=== PATIENT | female | born 2000 | race Caucasian/White ===

== ENCOUNTER 2023-01-28 20:16 | Emergency (ER) | payer OTHER, SELFPAY ==
--- NOTE | ~2023-01-28 | CT_ITS ---
CT of the Abdomen and Pelvis: Indication: Abdominal pain Technique: 2.5 mm axial scans were obtained through the abdomen and pelvis following intravenous adm inistration of 100 cc of Omnipaque 350. Dose reduction technique was used on this scan by utilizing a utomated exposure control and iterative reconstruction technique. The dose-length product (DLP) was 3 33.57 mGy-cm. Findings: Scans through the lung bases are unremarkable. The liver, spleen, pancreas, gallbladder, adrenals and kidneys are within normal limits. No evidence of aortic aneurysm. No lymphadenopathy. No bowel obstruction or bowel wall thickening. There is no evidence to suggest acute appendicitis. Images through the pelvis were performed. Urinary bladder unremarkable. No adnexal mass seen. No asci patti. Impression: No significant abnormalities seen. Reviewed, dictated and finalized at [facility]. Impression: No significant abnormalities seen.
[2023-01-28 20:17] VITALS: BP 139/92; PULSE 120; RESP 18; TEMP 36.9; O2SAT 98
[2023-01-28 21:26] LABS: Appearance Urine Clear (Clear); Bilirubin Urine Negative (Negative); Blood Urine Negative (Negative); Color Urine Yellow (Yellow); Glucose Urine UA Negative (Negative); Ketones Urine Negative (Negative); Leukocyte Esterase Ur Negative LEU/UL (Negative); Nitrate Urine Negative (Negative); Protein Urine Negative (Negative); Specific Grav Ur 1.002 (1.001-1.035); Urobilinogen Urine 0.2 mg/dL (<2.0)
[2023-01-28 21:31] LABS: Add Urine Microscopic? NO
[2023-01-28 21:34] LABS: Basophils Absolute Auto 0.1 K/mm3 (0.0-0.1); Basophils Percent Auto 0.6 % (0.2-1.2); Eosinophils Percent Auto 0.4 % (0-4.4); Hematocrit 38.3 % (37.0-47.0); Hemoglobin 12.8 g/dL (12.0-15.0); Immature Granulocyte Absolute 0.02 K/mm3 (0.00-0.031); Immature Granulocyte Percent A 0.3 % (0-0.5); Lymphocytes Absolute Auto 2.02 K/mm3 (0.9-3.2); Lymphocytes Percent Auto 26.2 % (18.3-44.2); Mean Corpuscular HGB Conc 33.4 g/dl (32-36); Mean Corpuscular Volume 92.7 fl (80-100); Mean Platelet Volume 9.4 fl (7.4-10.4); Monocytes Absolute Auto 0.6 K/mm3 (0.1-0.6); Monocytes Percent Auto 7.8 % (2.6-8.5); Neutrophils Percent Auto 64.7 % (45.5-73.1); Platelet Count Result 264 k/mm3 (150-375); Red Blood Count 4.13 M/mm3 (4.2-5.4); Red Cell Distribution Width 12.6 % (11.5-14.5); White Blood Count 7.7 K/mm3 (4.5-10.0)
[2023-01-28 21:44] LABS: Alanine Aminotransferase 24 U/L (6-35); Albumin Level 4.6 g/dL (3.5-5.1); Alkaline Phosphatase 55 U/L (38-126); Anion Gap 7 mmol/L (8-16); Aspartate Amino Transferase 32 U/L (14-36); Bilirubin,Total 0.7 mg/dL (0.2-1.3); Blood Urea Nitrogen 12 mg/dL (7-17); Calcium 9.7 mg/dL (8.4-10.2); Carbon Dioxide 28 mmol/L (22-30); Chloride 104 mmol/L (98-107); Estimated CRCL calculation 74 ml/min; Estimated Glomerular Filt Rate > 60; Glucose 95 mg/dL (65-110); Potassium 3.9 mmol/L (3.4-5.0); Sodium 139 mmol/L (137-145)
[2023-01-28] MEDS: ACETAMINOPHEN 500 MG TABLET 1000 MG PO (22:24)
--- NOTE | 2023-01-28 22:40 | ED.FEMALEGU ---
HPI - Female Genitourinary General Chief complaint: Urogenital-Female Stated complaint: abdominal pain-burning with urination Time Seen by Provider: 01/28/23 21:11 Source: patient Mode of arrival: ambulatory Limitations: no limitations History of Present Illness HPI Narrative: Patient is a 22-year-old female who presents to the ED with concern for UTI. Patient reports she felt fine yesterday, but developed lower abdominal/vaginal pain/irritation and dysuria today. She is concerned she may have a UTI. She denies notable urinary frequency/urgency, hematuria, back pain, fevers, nausea, vomiting, abnormal vaginal bleeding or discharge/odor. She has not noticed any genital lesions or lumps. Denies concern for STDs. Related Data Allergies Allergy/AdvReac Type Severity Reaction Status Date / Time No Known Allergies Allergy Unverified 01/28/23 20:16 Review of Systems Review of Systems: CONSTITUTIONAL: Denies fever, chills, or sweats. CARDIOVASCULAR: Denies chest pain. RESPIRATORY: Denies dyspnea. GASTROINTESTINAL: See HPI. GENITOURINARY: See HPI. SKIN: Denies rash or itching. MUSCULOSKELETAL: Denies back pain, joint pain, or myalgia. All systems reviewed & are unremarkable except as noted in HPI and below Exam Narrative: GENERAL: Mildly uncomfortable appearing, well-nourished, non-toxic, in no acute distress. HEAD: Normocephalic, atraumatic. NECK: Supple. No adenopathy, no masses. RESPIRATORY: Airway patent, respirations nonlabored. Clear to auscultation bilaterally, no rales, rhonchi, wheezing. CARDIOVASCULAR: Borderline tachycardic with regular rhythm without murmurs, rubs, or gallops. Radial pulses 2+ and equal bilaterally. ABDOMINAL: Soft, no significant focal tenderness throughout abdomen, nondistended, no hepatosplenomegaly. Normoactive BS. PELVIC: Normal external genitalia, no genital lesions/blisters/ulcers. No evidence of Bartholin's cyst abnormality. No urethral swelling/irritation. Normal physiologic discharge. No bleeding. Normal-appearing cervix. No candidal skin changes. MUSCULOSKELETAL: Moves all extremities. Strength/ROM intact without gross deformities. SKIN: Warm, dry, normal color. No rashes. NEURO: A&O X3. Speech clear. Cranial nerves II-XII grossly intact. Steady gait. No ataxic movements. PSYCHIATRIC: Mildly anxious. Normal interaction. Course Vital Signs Vital signs: Vital Signs Temperature 98.5 F 01/28/23 20:17 Pulse Rate 120 H 01/28/23 20:17 Respiratory Rate 18 01/28/23 20:17 Blood Pressure 139/92 H 01/28/23 20:17 Pulse Oximetry 98 01/28/23 20:17 Oxygen Delivery Room Air 01/28/23 20:17 Temperature 98.5 F 01/28/23 20:17 Pulse Rate 120 H 01/28/23 20:17 Respiratory Rate 18 01/28/23 20:17 Blood Pressure 139/92 H 01/28/23 20:17 Pulse Oximetry 98 01/28/23 20:17 Oxygen Delivery Room Air 01/28/23 20:17 MDM - Female Genitourinary MDM Narrative Medical decision making narrative: Patient presented to ED with vaginal irritation and concern for UTI, dysuria. Patient tachycardic upon arrival, likely in part related to pain and anxiety. Improved by the time of my evaluation. Basic laboratory studies unremarkable. Urinalysis completely negative. No evidence for infection. Pelvic exam performed and unremarkable. No genital lesions, no evidence for HSV, trauma, kamlesh, Bartholin cyst, normal physiologic discharge, no bleeding. Patient denied concern for STDs and did not want to be screened for these. Bedside urine test with faintly positive line. Beta quant obtained and negative. CT abd/pelvis obtained to further evaluate and unremarkable, no abnormalities noted. Normal uterus and bladder. Patient updated on lab and imaging results. She is ready to be discharged at this time. She has follow-up with her OBGYN next week. Will try Pyridium to treat urinary sx's despite negative urinalysis. Discussed good hygiene, importance of close f/u, and stric
[2023-01-28 23:52] LABS: Beta HCG Quantitative < 2.39 mIU/ML
[2023-01-29 03:40] VITALS: BP 128/88; PULSE 98; RESP 15; O2SAT 100
== END 2023-01-29 03:41 | disposition home or self-care (01) ==
PROVIDERS: Emergency Provider Physician Assistant
DX: R30.0 Dysuria (principal); R10.32 Left lower quadrant pain; R10.31 Right lower quadrant pain
CPT/HCPCS: 36415; 74177; 80053; 81003; 84702; 85025; 99284; A9270; Q9967

== ENCOUNTER 2024-05-19 21:27 | Emergency (ER) | payer SELFPAY ==
--- OUTSIDE RECORDS SUMMARY | 2024-05-19 21:30 | XMS_ITS | Clinical Summary ---
Author Organization [facility] Address [address] [place] [address] Care Team Providers Care Diagnostic Cardiac Sonographer Name Role Phone Unavailable Primary Care Provider Unavailabl e Source Comments [facility],non-owned Affiliates and Associated Physician Practices is amultiple site organization consisting of ambulatory clinics and hospital sitesin [place], [place], [place] and [place]. This disclosure is being madepursuant to the Care Everywhere program and may not contain all information available regarding this patient. Last updated 18.[facility] Allergies No known active allergies Medications * Be aware that medications may not be up to date on this document. Alwaysverify current medications with the patient. Medication Sig Dispensed Refills Start Date End Date Status venlafaxine XR 24hr (Effexor XR) 150 MG capsule TAKE 1 CAPSULE BY MOUTH EVERY DAY AT BEDTIME FOR 30 DAYS 05/26/2023 Active traZODone (Desyrel) 50 MG tablet TAKE 1 AND 1/2 TO 2 TABLETS AT BEDTIME FOR SLEEP 05/12/2023 Active rosuvastatin (Crestor) 10 MG tablet Take 1 (one) tablet by mouth once daily 11/25/2022 Active Dulera 200-5 MCG/ACT inhaler INHALE 2 PUFFS INTO THE LUNGS TWICE A DAY FOR 30 DAYS 03/19/2023 Active minocycline (Minocin) 100 MG capsule TAKE 1 CAPSULE BY MOUTH EVERY 12 HOURS AFTER MEALS FOR 30 DAYS 05/15/2023 Active losartan (Cozaar) 50 MG tablet Take 1 (one) tablet by mouth once daily Active lamoTRIgine (LaMICtal) 25 MG tablet TAKE 2 TABLETS BY MOUTH EVERY DAY IN THE MORNING 2022 Active glycopyrrolate (Robinul) 1 MG tablet TAKE 1 TO 2 TABLETS BY MOUTH TWICE A DAY FOR HYPERHIDROSIS 05/12/2023 Active clindamycin 1 % gel APPLY THIN COAT TO AFFECTED AREA TWICE A DAY 05/28/2023 Active Vitamin D3 25 MCG tablet TAKE 1 TABLET BY MOUTH EVERY DAY WITH MEALS 05/03/2023 Active albuterol HFA (Proventil; Ventolin; Proair) 108 (90 Base) MCG/ACT inhaler INHALE 2 PUFFS EVERY 8 HOURS BY INHALATION ROUTE NEEDED FOR 30 DAYS. 04/12/2023 Active tretinoin (Retin-A) 0.05 % creamIndications: Acne vulgaris Pea sized amount to entire face at night.. 30 days supply. 45 g 5 06/09/2023 Active benzoyl peroxide-erythrom ycin (Benzamycin) 5-3 % gelIndications:Ac ne vulgaris Apply to face area daily. 30 days supplied. 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 06/09/2023 Acne 09/07/2014 06/09/2023 Social History Tobacco Use Types Packs/Day Years Used Date Smoking Tobacco: Never Smokeless Tobacco: Never Alcohol Use Standard Drinks/Week Comments No 0 (1 standard drink = 0.6 oz pur e alcohol) Sex and Gender Information Value Date Recorded Sex Assigned at Not on file Gender Identity Not on file Sexual Orientation Not on file Last Filed Vital Signs Vital Sign Reading Time Taken Comments Blood Pressure 120/77 06/14/2018 12:06 AM [employer] Pulse 84 06/14/2018 12:06 AM [employer] Temperature 36.6 ??C (97.9 ??F) 06/13/2018 6:05 PM CS T Respiratory Rate 16 06/14/2018 12:06 AM [employer] Oxygen Saturation 100% 06/14/2018 12:06 AM [employer] Inhaled Oxygen Concentration - - Weight 59 kg (130 lb) 06/13/2018 6:05 PM [employer] Height 162.6 cm (5' 4 ) 06/13/2018 6:05 PM [employer] Body Mass Index 22.31 06/13/2018 6:05 PM [employer] Plan of Treatment Health Maintenance Due Date Last Done Comments PAP SMEAR 1999 HPV VACCINE (1 - 3-dose series) 07/06/2014 CHLAMYDIA/GONORRHEA SCREENING 2015 HEPATITIS C SCREENING 07/02/2017 DTAP/TDAP/TD VACCINES (1 - Tdap) 07/06/2018 HEPATITIS B VACCINE (1 of 3 - 19+ 3-dose series) 07/06/2018 PNEUMOCOCCAL VACCINE (1 of 2 - PCV) 07/06/2018 COVID-19 VACCINE (1 - 2023-2 5 season) 2023 INFLUENZA VACCINE (#1) 2023 01/22/2023 ZOSTER VACCINE (1 of 2) 07/06/2049 HIV SCREENING Completed 06/13/2018 HIB VACCINE Aged Out No longer eligi ble based on patient's age to complete this topic MENINGOCOCCAL (Group B) VACCINE Aged Out No longer eligible based on patient's age to complete this topic MENINGOCOCCAL VACCINE Aged Out No tru zonia eligible based on patient's age to complete this topic Procedures Procedure Name Priority Date/Time Associated Diagnosis Comments HIV-1 HIV-2 ANTIGEN/ANTIBODY STAT 06/13/2018 7:33 PM [employer] from Last 3 Months or Most Recently Relevant to Health Maintenance Results * HIV-1 HIV-2 ANTIGEN/ANTIBODY (06/13/2018 7:33 PM [employer]) HIV Antigen/Antibod y 1 & 2 Non-reacti ve Non-react tree 06/13/2018 8:21 PM [employer] [facility] Comment: Neither HIV-1 p24 Antigen nor HIV-1/HIV-2 Antibodies are detected. ? Blood BLOOD SPECIMEN / Unknown 06/13/2018 7:33 PM [employer] 06/13/2018 7:43 PM [employer] Quentin Butcher MD [facility] [address] [place] [address] from Last 3 Months or Most Recently Relevant to Health Maintenance LAURIE NEWBY EA A Personal/Famil y 2000 [address] [place] [address]
--- OUTSIDE RECORDS SUMMARY | 2024-05-19 21:30 | XMS_ITS | Data Portability ---
Author Organization [facility] [employer], Main Office Address [address] [place] [address] Assessment No assessment recorded. Plan of Treatment Reminders Order Date Submit Date Provider Last Modified By Organization Details Last Modified Time Details Appointments None recorded. Lab test, urine 2023 024 [email or web address], [place], [address], 4 16:33:43 H. pylori, fingerstic k [email or web address], [place], [address], 4 12:54:[address] referral - 20 y/o needs a pap smear . Thank you 2022 023 Lucy Bowen MD, [address], [address], [place], [address], 3 09:43:52 dermatolog ist referral - Please evql and treat for acne 2022 023 [email or web address] [facility], [address] [facility], [place], [address], 4 08:53:[address] referral 2022 023 [email or web address] Lucy Bowen MD, [address], [address], [place], [address], 4 08:53:40 gastroente rologist referral - Please call patient to schedule an appointmen t. Thank you. 2023 024 [email or web address] Ellen Choi MD, [address] [facility], [facility] [address], [place], [address], 4 09:03:24 Procedures None recorded. Surgeries None recorded. Imaging None recorded. Medication Orders losartan 50 mg tablet 2022 023 [facility] [address] [place], [address], 3 15:51:02 glycopyrro late 1 mg tablet 2022 023 [facility], [address] [place], [address], 3 12:03:47 albuterol sulfate HFA 90 mcg/actuat ion aerosol inhaler 2022 023 [facility], [address] [place] [address], [address], 3 12:05:50 Dulera 200 mcg-5 mcg/actuat ion HFA aerosol inhaler 2022 023 [email or web address] 00 [facility] [address] [place] [address], [address], 3 14:01:11 clindamyci n 1 % topical gel 2022 023 [facility], [address] [place], [address], 3 11:52:43 lamotrigin e 100 mg tablet 2022 023 [facility], [address] [place], [address], 3 12:03:47 venlafaxin e ER 150 mg capsule,ex tended release 24 hr 2022 023 [facility], [address] [place], [address], 3 12:04:30 spironolac tone 25 mg tablet 2022 023 [email or web address] [facility] [address] [place], [address], 4 12:12:26 minocyclin e 100 mg capsule 2022 023 [facility] [address] [place], [address], 3 11:44:59 meclizine 12.5 mg tablet 2023 024 [facility] [address] [place], [address], 4 20:17:50 ondansetro n 4 mg disintegra ting tablet 2023 024 [facility] [address] [place], [address], 4 12:41:47 omeprazole 20 mg tablet,del ayed release 2023 024 [facility], [address] [place], [address], 4 12:45:35 Patient TargetsNo targets recorded. 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 Thank you. Referring Physician: Daryl Regalado [facility], Encounter Date: 01/07/2024 Results Created Date Observation Date Name Description Value Unit Range Abnormal Flag Note LastModifiedBy Organization Detail LastModifiedTime 01/07/20 24 01/07/2024 H. husam iwin rstic k H PYLORI negati ve Not Available [address], [place], [address], 01/07/2024 12:43:36 01/07/20 24 01/07/2024 pregn stanislaw test, urine HCG negati ve Not Available [address], [place], [address], 01/07/2024 12:36:55 Result Notes None recorded. Problems Name Problem SNOMED Code Status Onset Date Resolution Date Notes Provider Name and Address Organization Details Recorded Time Essential hypertensi on 95075200 Active 2022 VARUN Castillo [address], [place], [address], [employer] 3 15:50:23 Administra tion of influenza vaccine Active 2022 VARUN Castillo [address], [place], [address], [employer] 3 15:51:48 Bipolar I disorder 921284464 Active 2022 Zenia Wilfredo is psychiatri st VARUN Castillo [address], [place], [address], [facility] 3 15:54:08 Screening for malignant neoplasm of cervix Active 2022 VARUN Castillo [address], [address], [place], [address], [place] [facility] 3 15:59:19 Acne 69123424 Active 2022 VARUN Castillo [address], [address], [place], [address], [facility] 3 11:52:09 Hyperhidro sis 564373602 Active 2022 VARUN Castillo [address], [address], [place], [address], [facility] 3 12:01:56 Asthma 455474910 Active 2022 VARUN Castillo [address], [address], [place], [address], [facility] 3 12:04:53 Vitamin D deficiency 05441018 Active 2023 Maria Isabel Carlton RN null, [place] - [facility] 4 12:08:48 Hyperlipid emia 10640295 Active 2023 Maria Isabel Carlton RN null, [place] [facility] 4 12:09:18 Nausea 778088711 Active 2023 Elke Flynn RN null, [place] [facility] 4 12:37:03 Gastritis 8927896 Active 2023 VARUN Castillo [address], [address], [place], [address], [facility] 4 12:44:40 Vertigo 161454506 Active 2023 VARUN Castillo [address], [address], [place], [address], [facility] 4 13:00:14 Problem Notes None recorded. Procedures Surgical History Date Name Laterality Status Provider Name and Address Organization Details Recorded Time manipulation of displaced nasal septum completed Elke Flynn RN [place] [facility] 01/07/2024 12:13:33 Imaging Results None recorded. Procedure Notes None recorded. Medical Equipment None Reported. Allergies No known drug allergies Medications Name Sig Start Date Stop Date Status Note LastModified by Organization Details LastModified Time losartan 50 mg tablet TAKE 1 TABLET BY MOUTH EVERY DAY IN THE MORNING 2023 active Not Available Not Available Not Avai lable glycopyrrol ate 1 mg tablet TAKE 1 TO 2 TABLETS BY MOUTH TWICE A DAY FOR HYPERHIDR OSIS 2023 active Not Available Not Available Not Avai lable trazodone 50 mg tablet TAKE 1.5 TABLETS EVERY DAY BY ORAL ROUTE AT BEDTIME FOR 90 DAYS. active Not Available Not Available No t Available hydrocodone 5 mg-acetamin ophen 325 mg tablet TAKE 1 TABLET BY MOUTH EVERY 4 HOURS NEEDED FOR PAIN active Not Available Not Available No t Available minocycline 100 mg capsule TAKE 1 CAPSULE BY MOUTH EVERY 12 HOURS AFTER MEALS FOR 30 DAYS 2023 active Not Available Not Available Not Avai lable spironolact one 100 mg tablet TAKE 1 TABLET BY MOUTH EVERY DAY active Not Available Not Available No t Available venlafaxine ER 150 mg capsule,ext ended release 24 hr TAKE 1 CAPSULE EVERY DAY BY ORAL ROUTE AT BEDTIME FOR 90 DAYS, FOR ANXIETY AND DEPRESSIO N. active Not Available Not Available No t Available meclizine 12.5 mg tablet TAKE 1 TABLET BY MOUTH THREE TIMES A DAY NEEDED FOR 30 DAYS active Not Available Not Available No t Available tretinoin 0.05 % topical cream PEA SIZED AMOUNT TO ENTIRE FACE AT NIGHT.. 30 DAYS SUPPLY. active Not Available Not Available No t Available spironolact one 25 mg tablet TAKE 1 TABLET BY MOUTH EVERY DAY IN THE MORNING 01/06 completed Not Available Not Available Not Available clindamycin 1 % topical gel APPLY THIN COAT TO AFFECTED AREA TWICE A DAY active Not Available Not Available No t Available omeprazole 20 mg capsule,del ayed release TAKE 1 TABLET EVERY DAY BY ORAL ROUTE BEFORE MEAL(S) FOR 30 DAYS. active Not Available Not Available No t Available azelastine 137 mcg (0.1 %) nasal spray ADMINISTE R 1 SPRAY INTO EACH NOSTRIL 2 TIMES A DAY DIRECTED 01/06 completed Not Available Not Available Not Available albuterol sulfate HFA 90 mcg/actuati on aerosol inhaler INHALE 2 PUFFS EVERY 8 HOURS BY INHALATIO N ROUTE NEEDED FOR 30 DAYS. active Not Available Not Available No t Available ondansetron 4 mg disintegrat ing tablet PLACE 1 TABLET 3 TIMES A DAY BY TRANSLING UAL ROUTE NEEDED FOR 30 DAYS. active Not Available Not Available No t Available fluticasone propionate 50 mcg/actuati on nasal spray,suspe nsion ADMINISTE R 2 SPRAYS INTO EACH NOSTRIL 2 TIMES A DAY. 01/06 completed Not Available Not Available Not Available lamotrigine 100 mg tablet TAKE 1 TABLET BY MOUTH EVERYDAY AT BEDTIME active Not Available Not Available No t Available erythromyci n-benzoyl peroxide 3 %-5 % topical gel APPLY TO FACE AREA DAILY. 30 DAYS SUPPLIED. active Not Available Not Available No t Available rosuvastati n 10 mg tablet TAKE 1 TABLET BY MOUTH EVERY DAY 2023 active Not Available Not Available Not Avai lable glycopyrrol ate 01/06 completed Not Available Not Available Not Available venlafaxine 01/06 completed Not Available Not Available Not Available cholecalcif elliot (vitamin D3) 25 mcg (1,000 unit) tablet TAKE 1 TABLET EVERY DAY BY ORAL ROUTE WITH MEAL(S) FOR 90 DAYS. 2023 active Not Available Not Available Not Avai lable omeprazole 20 mg tablet,meagan yed release Take 1 tablet every day by oral route before meal(s) for 30 days. 2023 active Not Available Not Available Not Avai lable Dulera 200 mcg-5 mcg/actuati on HFA aerosol inhaler Inhale 2 puffs twice a day by inhalatio n route for 30 days. active Not Available Not Available No t Available Vitals Date Recorded Body height Body mass index (BMI) Body weight Body temperature Heart rate Oxygen saturation Oxygen saturation in Arterial blood by Pulse oximetry Systolic blood pressure Diastolic blood pressure Provider Name and Address Organization Details Last Updated DateTime 3 162.56 cm 24.7 kg/m2 23317.3 g 98.1 [degF] 112 /min 98 % 98 % 132 mm[Hg] 94 mm[Hg] Lucrecia Danielle MA [facility] [employer] [facility] 3 15:17:53 Date Recorded Body height Body mass index (BMI) Body weight Body temperature Oxygen saturation Oxygen saturation in Arterial blood by Pulse oximetry Heart rate Systolic blood pressure Diastolic blood pressure Provider Name and Address Organization Details Last Updated DateTime 3 162.56 cm 24.7 kg/m2 91321.3 g 98.4 [degF] 96 % 96 % 98.2 /min 126 mm[Hg] 72 mm[Hg] Lucrecia Danielle MA [facility] [employer] [facility] 3 11:35:59 Date Recorded Body height Body mass index (BMI) Body weight Body temperature Heart rate Oxygen saturation Oxygen saturation in Arterial blood by Pulse oximetry Systolic blood pressure Diastolic blood pressure Provider Name and Address Organization Details Last Updated DateTime 3 162.56 cm 24.9 kg/m2 24255.8 9 g 98.6 [degF] 97 /min 98 % 98 % 122 mm[Hg] 86 mm[Hg] Lucrecia Danielle MA [facility] [employer] [facility] 3 11:31:05 Date Recorded Body height Body mass index (BMI) Body weight Body temperature Heart rate Oxygen saturation Oxygen saturation in Arterial blood by Pulse oximetry Systolic blood pressure Diastolic blood pressure Provider Name and Address Organization Details Last Updated DateTime 4 162.56 cm 25.2 kg/m2 28955.0 8 g 98.4 [degF] 110 /min 100 % 100 % 110 mm[Hg] 70 mm[Hg] Elke Flynn RN [facility] [employer] [facility] 4 12:13:52 Social History Question Answer Notes LastModified by Organizat ion Details LastModified Time Tobacco Smoking Status Never Smoker VIVIANA Mendoza [facility] [employer] [facility] 01/22/2023 15:33:45 What Is Your Level Of Alcohol Consumption? None [email or web address] Information not available 01/22/2023 What Is Your Level Of Caffeine Consumption? Moderate [email or web address] Information not available 01/22/2023 Do You Use Your Seat Belt Or Car Seat Routinely? Yes [email or web address] Information not available 01/22/2023 Do You Participate In Social Media? No [email or web address] Information not available 01/22/2023 Do You Feel Stressed (tense, Restless, Nervous, Or Anxious, Or Unable To Sleep At Night)? [id number] [email or web address] Information not available 01/22/2023 Do You Use Any Illicit Or Recreational Drugs? No [email or web address] Information not available 01/22/2023 Sex: Unknown Functional Status None recorded. Mental Status None recorded. Family History Nothing Reported. Medical History No medical history recorded. Gynecological HistoryNo gynecological history recorded. Obstetrics History GPAL:G 0 P 0 0 0 0 Immunizations Vaccine Type Date Status Note Provider Nam e and Address Organization Details Recorded Time Influenza, split virus, quadrivalent, PF 01/22/2023 completed VARUN Castillo [address] [place] [address] [place] [address], [place], [address], [facility] [employer] 01/31/2023 09:51:58 Past Encounters Encounter ID Performer Location Encounter Start Date Encounter Closed Date Diagnosis/Indication Diagnosis SNOMED-CT Code Diagnosis ICD10 Code Diagnosis Note [id number] VARUN Castillo [facility] [place] [address] [place] [address] 01/22/2023 15:05:15 01/22/2023 16:10:06 Essential hypertension 18972471 I10 Administra tion of influenza vaccine 53298597 Z23 Bipolar I disorder 90415 6008 F31.9 Screening for malignant neoplasm of cervix 784612231 Z12.4 [id number] VARUN Castillo [facility] [place] [address] [place] [address] 02/20/2023 11:27:47 02/20/2023 12:02:11 Essential hypertension 21735209 I10 Acne 46535802 L70.9 Screening for malignant neoplasm of cervix 281684040 Z12.4 Bipolar I disorder 24488 6008 F31.9 Hyperhidrosis 016252874 R61 Asthma 947761124 J45.90 9 [id number] VAURN Castillo [facility] [place] [address] [place] [address] 03/20/2023 11:22:54 03/20/2023 12:25:45 Acne 15395875 L70.9 Asthma 915297095 J45.90 9 Bipolar I disorder 64447 6008 F31.9 Essential hypertension 28549376 I10 Hyperhidrosis 248938119 R61 [id number] VARUN Castillo [facility] [place] [address] [facility] [place] [address] 01/07/2024 12:07:38 01/07/2024 12:59:32 Nausea 064391945 R11.0 Gastritis 9344987 K29.70 Vertigo 069308668 R42 Asthma 065364711 J45.90 9 Bipolar I disorder 58599 6008 F31.9 Essential hypertension 55286985 I10 Hyperhidrosis 807898331 R61 Hyperlipidemia 11585731 E78.5 Vitamin D deficiency 347 42605 E55.9 Health Concerns Section Related Observation LastModified by Organization Detai ls LastModified Time None Recorded Concern Status LastModified by Organization Details LastModified Time None Recorded Advance Directives Directive None Recorded Payers Encounter Date Sequence Insurance Name Policy Number Policy Jacobs Covered Member ID Jacobs Member ID Guarantor Name 01/22/2023 1 [facility] (MEDICAID HMO) [id number] Alexzandr Shakira [id number] Alexzandrea Minturn 02/20/2023 1 [facility] (MEDICAID HMO) [id number] Alexzandr Shakira [id number] Alexzandrea Minturn 03/20/2023 1 [facility] (MEDICAID HMO) [id number] Alexzandr Minturn [id number] Alexzandrea Minturn 01/07/2024 1 [facility] (MEDICAID HMO) [id number] Alexzandr Shakira [id number] Alexzandrea Minturn Notes Date Note Type Note Provider Name and Address Organization Details Recorded Time 01/22/2023 text/html 22 y/o here to establish care VARUN Castillo [address] [place] [address] [address], [place], [address], [facility] [employer] [facility] 01/31/2023 09:54:16 02/20/2023 text/html facial acne VARUN Castillo [address], [place], [address], [facility] [employer] [facility] 02/25/2023 14:02:23 03/20/2023 text/html 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 VARUN Castillo [address], [place], [address], [facility] [employer] [facility] 01/24/2024 17:18:47 OBGyn Episode No OBEpisode recorded.
--- OUTSIDE RECORDS SUMMARY | 2024-05-19 21:30 | XMS_ITS | Clinical Summary ---
Author Organization [facility] Address [address] [place] [address] Care Team Providers Care Hotel Reservationist Name Role Phone Kyle Kaur MD Primary Care Provider [phone] Aayush Steele MD Unavailable [phone] Allergies No known active allergies Medications omeprazole (PriLOSEC) 20 mg capsule TAKE 1 CAPSULE BY MOUTH TWICE A DAY BEFORE MEALS 3 Active rosuvastatin (CRESTOR) 10 mg tabletIndicatio ns:hyperlipidem ia Take 1 tablet (10 mg total) by mouth auto bumper straightener before breakfast 3 Active traZODone (DESYREL) 50 mg tabletIndicatio ns:insomnia associated with depression Take 1 tablet (50 mg total) by mouth nightly 3 Active venlafaxine XR (EFFEXOR-XR) 150 mg 24 hr capsuleIndicati ons:Anxiety with Depression Take 1 capsule (150 mg total) by mouth nightly 3 Active glycopyrrolate (ROBINUL) 2 mg tabletIndicatio ns:sweating Take 1 tablet (2 mg total) by mouth 2 (two) times a day Active losartan (COZAAR) 50 mg tabletIndicatio ns:hypertension Take 1 tablet (50 mg total) by mouth auto bumper straightener before breakfast Active lamoTRIgine (LaMICtal) 100 mg tabletIndicatio ns:Bipolar Disorder in Remission Take 1 tablet (100 mg total) by mouth auto bumper straightener before breakfast Active mv-mn/iron/foli c acid/herb 190 (VITAMIN D3 COMPLETE ORAL)Indication s:supplement Take 1 tablet by mouth auto bumper straightener before breakfast Active HYDROcodone-sherri taminophen (NORCO) 5-325 mg per tabletIndicatio ns:Pain Take 1 tablet by mouth every 4 (four) hours as needed for pain 15 tablet 4 Active Active Problems Patient Care Coordination No te Formatting of this note migh t be different from the original. Deviated septum Problem Noted Date Diagnosed Date Hypertrophy of nasal turbinates 03/03/2023 Deviated nasal septum 03/03/2023 Abscess of neck 05/11/2015 Acne 09/07/2014 Epidermal nevus 09/07/2014 Hyperhidrosis 09/07/2014 Surgical History Surgery Date Site/Laterality Comments NECK SURGERY 04/20/2015 - 04/19/2016 Skin tags removed anterior neck Medical History Medical History Date Comments Deviated nasal septum Hyperhidrosis Depression Motion sickness Anxiety Bipolar disorder (HCC) Asthma Social History Tobacco Use Types Packs/Day Years Used Date Smoking Tobacco: Never Smokeless Tobacco: Never AUDIT-C Answer Date Recorded Q1: How often do you have a drink containing alcohol? Never 04/23/2023 Q2: How many drinks containi ng alcohol do you have on a typical day when you are drinking? Patient does not drink Q3: How often do you have si x or more drinks on one occasion? Never 04/23/2023 Personal Safety Answer Date Recorded Have you ever been in or are you currently in a harmful physical or emotional relationship or is someone making you feel afraid or unsafe? 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 [employer] Gender Identity Not on file Sexual Orientation Not on file Obstetrics History Last Filed Vital Signs Vital Sign Reading Time Taken Comments Blood Pressure 144/95 04/23/2023 1:55 PM [employer] Pulse 97 04/23/2023 1:55 PM [employer] Temperature 36.4 ??C (97.5 ??F) 04/23/2023 1:27 PM CS T Respiratory Rate 12 04/23/2023 1:55 PM [employer] Oxygen Saturation 96% 04/23/2023 1:55 PM [employer] Inhaled Oxygen Concentration - - Weight 63.5 kg (140 lb) 04/01/2023 1:25 PM [employer] Height 162.6 cm (5' 4 ) 04/01/2023 1:25 PM [employer] Body Mass Index 24.03 04/01/2023 1:25 PM [employer] Plan of Treatment Health Maintenance Due Date Last Done Comments Cervical Cancer Screening 1999 Depression Screening 1999 Hepatitis C Screening 1999 Regular Well Visit/Exam 18-64 07/06/2017 Covid-19 Vaccine (3 - 2023-2 5 season) 2023 10/17/2020, 09/26/2020 Influenza Vaccine (#1) 2023 01/20/2014 DTaP/Tdap/Td Vaccine (8 - Td or Tdap) 02/29/2032 02/28/2022, 02/05/2011, 03/06/2004, Additional history exists Pneumococcal vaccine <65 Completed 03/06/2004 Varicella Vaccines Completed 02/05/2011, 1 , 11/18/2002 HPV Vaccines Completed 01/02/2017, 05/04/2014 Medical Devices Implanted Type Area Sweeper Brush Maker Machine Device Identifier Shelf Expiration Date Model / Serial / Lot Implantech [employer] 3x2in Nonreinforced Permanent Implantable Thk.04in -40 - [id number] Implanted:Qty: 1 on 04/23/2023 by Aayush Steele MD at [facility] Bilateral : Nose Implantech [id number] 07/25/2027-40 / / [id number] Insurance [facility] Care Teams Hotel Reservationist Relationship Specialty Start Date End Date Kyle Kaur MD [address] [facility] [address] [place] [address] PCP - General Internal Medicine 11/20/22 Aayush Steele MD [address] [facility] [address] [place] [address] Referring Physician Otolaryngology 04/23/23
--- OUTSIDE RECORDS SUMMARY | 2024-05-19 21:30 | XMS_ITS | Referral Summary ---
Author Organization [facility] Address [address] [place] [address] Care Team Providers Care Machine Cell Tuber Name Role Phone Kyle Kaur MD Primary Care Provider [phone] Aayush Steele MD Unavailable [phone] Allergies No known active allergies Medications omeprazole (PriLOSEC) 20 mg capsule TAKE 1 CAPSULE BY MOUTH TWICE A DAY BEFORE MEALS 3 Active rosuvastatin (CRESTOR) 10 mg tabletIndicatio ns:hyperlipidem ia Take 1 tablet (10 mg total) by mouth drilling field specialist before breakfast 3 Active traZODone (DESYREL) 50 [...] 1 tablet (50 mg total) by mouth drilling field specialist before breakfast Active lamoTRIgine (LaMICtal) 100 mg tabletIndicatio ns:Bipolar Disorder in Remission Take 1 tablet (100 mg total) by mouth drilling field specialist before breakfast Active mv-mn/iron/foli c acid/herb 190 (VITAMIN D3 COMPLETE ORAL)Indication s:supplement Take 1 tablet by mouth drilling field specialist before breakfast Active HYDROcodone-sherri taminophen (NORCO) 5-325 [...] Acne 09/07/2014 Epidermal nevus 09/07/2014 Hyperhidrosis 09/07/2014 Social History Tobacco Use Types Packs/Day Years [...] on file 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 Gender Identity Not on file Sexual Orientation Not on file Last Filed Vital Signs Vital Sign Reading Time Taken Comments Blood Pressure 144/95 04/23/2023 1:55 PM CLERICAL SPECIALIST Pulse 97 04/23/2023 1:55 PM CLERICAL SPECIALIST Temperature 36.4 ??C (97.5 ??F) 04/23/2023 1:27 PM CS T Respiratory Rate 12 04/23/2023 1:55 PM CLERICAL SPECIALIST Oxygen Saturation 96% 04/23/2023 1:55 PM CLERICAL SPECIALIST Inhaled Oxygen Concentration - - Weight 63.5 kg (140 lb) 04/01/2023 1:25 PM CLERICAL SPECIALIST Height 162.6 cm (5' 4 ) 04/01/2023 1:25 PM CLERICAL SPECIALIST Body Mass Index 24.03 04/01/2023 1:25 PM CLERICAL SPECIALIST Plan of Treatment Not on file Medical Devices Implanted Type Area Case Investigator Device Identifier Shelf Expiration Date Model / Serial / Lot Implantech Alliedsil 3x2in Nonreinforced Permanent Implantable Thk.04in - [id number] Implanted:Qty: 1 on 04/23/2023 by Aayush Steele MD at [facility] Bilateral : Nose Implantech [id number] 07/25/2027 / / [id number] Insurance [facility] [facility] Care Teams Machine Cell Tuber Relationship Specialty Start Date End Date Kyle Kaur MD [address] [facility] [address] [place] [address] PCP - General Internal Medicine 11/20/22 Aayush Steele MD [address] [facility] [address] [place] [address] Referring Physician Otolaryngology 04/23/23
--- OUTSIDE RECORDS SUMMARY | 2024-05-19 21:30 | XMS_ITS | Referral Summary ---
Author Organization [facility] [employer] Address [address] [place] [address] Care Team Providers Care Animal Surgeon Name Role Phone Unavailable Primary Care Provider Unavailabl e Source Comments [facility],non-owned Affiliates and Associated Physician Practices is amultiple site organization consisting of ambulatory clinics and hospital sitesin [place], [place], [place] and [place]. This disclosure is being madepursuant to the Care Everywhere program and may not contain all information available regarding this patient. Last updated 18.[facility] Allergies No known active allergies Medications * [...] Comments Blood Pressure 120/77 06/14/2018 12:06 AM FITTER AND TURNER Pulse 84 06/14/2018 12:06 AM FITTER AND TURNER Temperature 36.6 ??C (97.9 ??F) 06/13/2018 6:05 PM CS T Respiratory Rate 16 06/14/2018 12:06 AM FITTER AND TURNER Oxygen Saturation 100% 06/14/2018 12:06 AM FITTER AND TURNER Inhaled Oxygen Concentration - - Weight 59 kg (130 lb) 06/13/2018 6:05 PM FITTER AND TURNER Height 162.6 cm (5' 4 ) 06/13/2018 6:05 PM FITTER AND TURNER Body Mass Index 22.31 06/13/2018 6:05 PM FITTER AND TURNER Plan of Treatment Not on file Procedures Procedure Name Priority Date/Time Associated Diagnosis Comments HIV-1 HIV-2 ANTIGEN/ANTIBODY STAT 06/13/2018 7:33 PM FITTER AND TURNER from Last 3 Months or Most Recently Relevant to Health Maintenance Results * HIV-1 HIV-2 ANTIGEN/ANTIBODY (06/13/2018 7:33 PM FITTER AND TURNER) HIV Antigen/Antibod y 1 & 2 Non-reacti ve Non-react tree 06/13/2018 8:21 PM FITTER AND TURNER [facility] Comment: Neither HIV-1 p24 Antigen nor HIV-1/HIV-2 Antibodies are detected. ? Blood BLOOD SPECIMEN / Unknown 06/13/2018 7:33 PM FITTER AND TURNER 06/13/2018 7:43 PM FITTER AND TURNER Quentin Butcher MD LAB - HEMATOLOGY O RDERABLES Performing Organization Address City/State/[facility] Co de Phone Number [facility] [address] [phone] from Last 3 Months or Most Recently Relevant to Health Maintenance LAURIE NEWBY EA Personal/Famil y 2000 [address] [place] [address]
--- OUTSIDE RECORDS SUMMARY | 2024-05-19 21:31 | XMS_ITS | Patient Health Summary ---
Author Organization [facility] [employer] Address [address] [place] [address] Care Team Providers Care Manager Analysis Name Role Phone Unavailable Primary Care Provider Unavailabl e Note from [facility],non-owned Affiliates and Associated Physician Practices is amultiple site organization consisting of ambulatory clinics and hospital sitesin [place], [place], [place] and [place]. This disclosure is being madepursuant to the Care Everywhere program and may not contain all informatio navailable regarding this patient. Last updated 18.[facility] Allergies No known active allergies Medications * Be aware that medications may not be up to date on this document. Alwaysverify current medications with the patient. * venlafaxine XR 24hr (Effexor XR) 150 MG capsule(Started 05/26/2023) TAKE 1 CAPSULE BY MOUTH EVERY DAY AT BEDTIME FOR 30 DAYS * traZODone (Desyrel) 50 MG tablet(Started 05/12/2023) TAKE 1 AND 1/2 TO 2 TABLETS AT BEDTIME FOR SLEEP * rosuvastatin (Crestor) 10 MG tablet(Started 11/25/2022) Take 1 (one) tablet by mouth once daily * Dulera 200-5 MCG/ACT inhaler(Started 03/19/2023) INHALE 2 PUFFS INTO THE LUNGS TWICE A DAY FOR 30 DAYS * minocycline (Minocin) 100 MG capsule(Started 05/15/2023) TAKE 1 CAPSULE BY MOUTH EVERY 12 HOURS AFTER MEALS FOR 30 DAYS * losartan (Cozaar) 50 MG tablet Take 1 (one) tablet by mouth once daily * lamoTRIgine (LaMICtal) 25 MG tablet(Started 2022) TAKE 2 TABLETS BY MOUTH EVERY DAY IN THE MORNING * glycopyrrolate (Robinul) 1 MG tablet(Started 05/12/2023) TAKE 1 TO 2 TABLETS BY MOUTH TWICE A DAY FOR HYPERHIDROSIS * clindamycin 1 % gel(Started 05/28/2023) APPLY THIN COAT TO AFFECTED AREA TWICE A DAY * Vitamin D3 25 MCG tablet(Started 05/03/2023) TAKE 1 TABLET BY MOUTH EVERY DAY WITH MEALS * albuterol HFA (Proventil; Ventolin; Proair) 108 (90 Base) MCG/ACT inhaler (Started 04/12/2023) INHALE 2 PUFFS EVERY 8 HOURS BY INHALATION ROUTE NEEDED FOR 30 DAYS. * tretinoin (Retin-A) 0.05 % cream(Started 06/09/2023) Pea sized amount to entire face at night.. 30 days supply. 5 refills by 06/08/2024 * benzoyl peroxide-erythromycin (Benzamycin) 5-3 % gel(Started 06/09/2023) Apply to face area daily. 30 days supplied. 2 refills by 06/08/2024 * minocycline (Minocin) 100 MG capsule(Started 06/09/2023) Take 1 (one) capsule by mouth 2 times daily 2 refills by 06/08/2024 * spironolactone (Aldactone) 100 MG tablet(Started 12/10/2023) TAKE 1 TABLET BY MOUTH EVERY DAY 5 refills by 12/09/2024 Active Problems Problem Noted Date Diagnosed Date Asthma 02/20/2023 06/09/2023 Bipolar I disorder 01/22/2023 06/09/2023 Abscess of neck 05/11/2015 06/09/2023 Epidermal nevus [...] Comments Blood Pressure 120/77 06/14/2018 12:06 AM DOOR PERSON Pulse 84 06/14/2018 12:06 AM DOOR PERSON Temperature 36.6 ??C (97.9 ??F) 06/13/2018 6:05 PM CS T Respiratory Rate 16 06/14/2018 12:06 AM DOOR PERSON Oxygen Saturation 100% 06/14/2018 12:06 AM DOOR PERSON Inhaled Oxygen Concentration - - Weight 59 kg (130 lb) 06/13/2018 6:05 PM DOOR PERSON Height 162.6 cm (5' 4 ) 06/13/2018 6:05 PM DOOR PERSON Body Mass Index 22.31 06/13/2018 6:05 PM DOOR PERSON Procedures * HCG URINE QUALITATIVE(Performed 06/13/2018) * URINE DRUG SCREEN IMMUNOASSAY(Performed 06/13/2018) * EKG 12-LEAD(Performed 06/13/2018) Performed for Suicidal ideation * HCG BETA BLOOD QUANTITATIVE(Performed 06/13/2018) * TSH(Performed 06/13/2018) * ALCOHOL ETHYL BLOOD(Performed 06/13/2018) * COMPREHENSIVE METABOLIC PANEL(Performed 06/13/2018) * CBC W AUTO DIFFERENTIAL(Performed 06/13/2018) * HIV-1 HIV-2 ANTIGEN/ANTIBODY(Performed 06/13/2018) Results * HCG URINE QUALITATIVE (06/13/2018 9:30 PM DOOR PERSON) [facility] Test Urine Negative Negative 06/13/2018 9:40 PM DOOR PERSON [facility] Urine URINE / Unknown Collection / Unknown 06/13/2018 9:30 PM DOOR PERSON 06/13/2018 9:35 PM DOOR PERSON Musa Reeder MD LAB - URINALYSIS ORD ERABLES [address] [phone] * DRUG SCREEN TOX URINE PANEL (06/13/2018 9:30 PM DOOR PERSON) [facility] Amphetamines Screen Urine Negative Negative: < 1000 ng/mL 06/13/2018 9:58 PM DOOR PERSON [facility] Barbiturates Screen Urine Negative Negative: < 200 ng/mL 06/13/2018 9:58 PM DOOR PERSON [facility] Benzodiazepine Screen Urine Negative Negative: < 200 ng/mL 06/13/2018 9:58 PM [facility] Opiates Urine Negative Negative: < 300 ng/mL 06/13/2018 9:58 PM [facility] Cocaine Metabolites Urine Negative Negative: < 300 ng/mL 06/13/2018 9:58 PM [facility] Phencyclidine Screen Urine Negative Negative: < 25 ng/ml 06/13/2018 9:58 PM [facility] Cannabinoids Screen Urine Negative Negative: <50 ng/mL 06/13/2018 9:58 PM [facility] Methadone Screen Urine Negative Negative: < 300 ng/mL 06/13/2018 9:58 PM [facility] Urine URINE / Unknown Collection / Unknown 06/13/2018 9:30 PM [facility] 06/13/2018 9:35 PM [facility] - 06/13/2018 9:58 PM [facility] The Urine Toxicology Screening Panel does not screen for Propoxyphene, Meprobamate, Carisoprodol, Trazodone, laxl-ugj-sfrycgf medications and/or volatiles (Acetone, Isopropanol, Methanol or Ethylene Glycol). Ethanol, Salicylate, Acetaminophen, Tricyclic Antidepressants and several therapeutic drugs may be individually assayed in serum or plasma specimen. Toxicology testing by the [facility] is an aid to medical diagnosis and treatment of patients. No documented chain of custody was maintained. Results are intended to be used for clinical purposes only. ? Musa Reeder MD LAB - URINE CHEMISTR Y ORDERABLES [facility] [address] [phone] * EKG 12-LEAD (06/13/2018 7:46 PM DOOR PERSON) [facility] Ventricular Rate 83 BPM [facility] Atrial Rate 83 BPM [facility] P-R Interval 124 ms [facility] QRS Duration ms 78 ms [facility] Q-T Interval ms 334 ms [facility] QTC Calculation (Bezet) 392 ms [facility] Calculated P [place] 67 degrees SL MUSE Calculated R [place] 68 degrees [facility] Calculated T [place] 29 degrees [facility] Interpretation EKG NORMAL SINUS RHYTHM WITH SINUS ARRHYTHMIA NORMAL ECG NO PREVIOUS ECGS AVAILABLE Confirmed by MANN.DESTINY SALES ([id number]), publication editor Jose Elias House ([id number]) on 07/25/2018 5:06:25 PM [facility] 06/13/2018 7:46 PM DOOR PERSON 07/25/2018 5:06 PM CDT Musa Reeder MD ECG ORDERABLES Performing Organization Address [facility] Co de Phone Number [facility] * HIV-1 HIV-2 ANTIGEN/ANTIBODY (06/13/2018 7:33 PM DOOR PERSON) [facility] HIV Antigen/Antibod y 1 & 2 Non-reacti ve Non-react tree 06/13/2018 8:21 PM DOOR PERSON [facility] Comment: Neither HIV-1 p24 Antigen nor HIV-1/HIV-2 Antibodies are detected. ? Blood BLOOD SPECIMEN / Unknown 06/13/2018 7:33 PM DOOR PERSON 06/13/2018 7:43 PM DOOR PERSON Quentin Butcher MD LAB - HEMATOLOGY O RDERABLES Performing Organization Address City/[facility]/ZIP Co de Phone Number [facility] [address] [place] [address] * CBC W AUTO DIFFERENTIAL (06/13/2018 7:33 PM DOOR PERSON) [facility] WBC 7.1 3.5 - 10.5 10? 3 /uL 06/13/2018 7:46 PM [facility] RBC 4.51 3.90 - 5.00 10? 6 /uL 06/13/2018 7:46 PM [facility] Hemoglobin 14.1 12.0 - 15.5 g/dL 06/13/2018 7:46 PM [facility] Hematocrit 40.9 35.0 - 45.0 % 06/13/2018 7:46 PM [facility] MCV 90.7 81.0 - 97.0 fL 06/13/2018 7:46 PM [facility] MCH 31.3 28.0 - 34.0 pg 06/13/2018 7:46 PM [facility] MCHC 34.5 32.0 - 36.0 g/dL 06/13/2018 7:46 PM [facility] Platelet Count 346 150 - 400 10? 3 /uL 06/13/2018 7:46 PM [facility] RDW-SD 39.5 36.0 - 50.0 fL 06/13/2018 7:46 PM [facility] RDW-CV 11.9 11.2 - 14.8 % 06/13/2018 7:46 PM [facility] MPV 9.7 9.3 - 12.8 fL 06/13/2018 7:46 PM [facility] nRBC Absolute 0.00 0 10? 3 /uL 06/13/2018 7:46 PM [facility] nRBC Auto 0.0 0 /100 WBC 06/13/2018 7:46 PM [facility] Neutrophils % 63.3 35.0 - 70.0 % 06/13/2018 7:46 PM [facility] Lymphocytes % 28.8 19.7 - 55.1 % 06/13/2018 7:46 PM [facility] Monocytes % 7.0 3.0 - 15.0 % 06/13/2018 7:46 PM [facility] Eosinophils % 0.1 0.0 - 6.0 % 06/13/2018 7:46 PM [facility] Basophil % 0.7 0.0 - 1.5 % 06/13/2018 7:46 PM [facility] Neutrophils Absolute 4.5 1.6 - 7.0 10? 3 /uL 06/13/2018 7:46 PM [facility] Lymphocyte Absolute 2.0 0.8 - 2.9 10? 3 /uL 06/13/2018 7:46 PM [facility] Monocytes Absolute 0.49 0.14 - 0.66 10? 3 /uL 06/13/2018 7:46 PM [facility] Eosinophils Absolute 0.01 0.00 - 0.45 10? 3 /uL 06/13/2018 7:46 PM [facility] Basophils Absolute 0.05 0.00 - 0.06 10? 3 /uL 06/13/2018 7:46 PM [facility] Immature Granulocytes % 0.1 0.0 - 1.0 % 06/13/2018 7:46 PM [facility] Blood BLOOD SPECIMEN / Unknown 06/13/2018 7:33 PM DOOR PERSON 06/13/2018 7:43 PM [facility] Musa Reeder MD LAB - HEMATOLOGY ORD ERABLES Performing Organization Address City/State/[facility] Co de Phone Number [address] [phone] * (ABNORMAL) COMPREHENSIVE METABOLIC PANEL (06/13/2018 7:33 PM DOOR PERSON) BUN 21 7 - 26 mg/dL 06/13/2018 8:01 PM [facility] Creatinine 0.9 0.6 - 1.2 mg/dL 06/13/2018 8:01 PM [facility] Sodium 138 136 - 145 mmol/L 06/13/2018 8:01 PM [facility] Potassium 4.3 3.5 - 4.5 mmol/L 06/13/2018 8:01 PM [facility] Chloride 104 98 - 107 mmol/L 06/13/2018 8:01 PM [facility] CO2 22 22 - 29 mmol/L 06/13/2018 8:01 PM [facility] Glucose 85 70 - 115 mg/dL 06/13/2018 8:01 PM [facility] Calcium 10.3(H) 8.4 - 10.2 mg/dL 06/13/2018 8:01 PM [facility] Protein Total 8.5(H) 6.0 - 8.3 g/dL 06/13/2018 8:01 PM [facility] Albumin 4.3 3.4 - 5.0 g/dL 06/13/2018 8:01 PM [facility] Bilirubin Total 0.5 0.2 - 1.2 mg/dL 06/13/2018 8:01 PM [facility] Alkaline Phosphatase 77 40 - 150 Units/L 06/13/2018 8:01 PM [facility] ALT 32 0 - 55 Units/L 06/13/2018 8:01 PM [facility] AST 30 5 - 34 Units/L 06/13/2018 8:01 PM [facility] Anion Gap 16 8 - 18 06/13/2018 8:01 PM [facility] BUN/Creatinine Ratio 23 7 - 23 06/13/2018 8:01 PM [facility] Osmolality Calculated 288 270 - 300 mOsm/kg 06/13/2018 8:01 PM [facility] Albumin/Globulin Ratio 1.0(L) 1.1 - 2.3 06/13/2018 8:01 PM [facility] eGFR >60 >60 mL/min/1.7 3 m2 06/13/2018 8:01 PM [facility] Blood BLOOD SPECIMEN / Unknown 06/13/2018 7:33 PM DOOR PERSON 06/13/2018 7:43 PM [facility] Musa Reeder MD LAB - CHEMISTRY MADELIN MARTINEZ [facility] Organization Address City/State/ZIP Co de Phone Number [address] [phone] * HCG BETA BLOOD QUANTITATIVE (06/13/2018 7:33 PM [facility]) Beta-hCG Total Quantitative <2 <5 mIU/mL 06/13/2018 9:58 PM [facility] Comment: HCG Numeric Result Interpretation: ? Non- Females: ? < 5 mIU/mL ? Post-Menopausal Females: ??< 7 mIU/mL ? Blood BLOOD SPECIMEN / Unknown 06/13/2018 7:33 PM DOOR PERSON 06/13/2018 7:43 PM DOOR PERSON Musa Reeder MD LAB - CHEMISTRY MADELIN MARTINEZ Performing Organization Address City/[facility]/[place] [address], [facility] [phone] * ALCOHOL ETHYL BLOOD (06/13/2018 7:33 PM DOOR PERSON) Interpretation Ethanol None Detected None Detected mg/dL 06/13/2018 8:01 PM DOOR PERSON [facility] Comment: Ethanol levels less than 10 mg/dL are resulted as None detected . Blood BLOOD SPECIMEN / Unknown 06/13/2018 7:33 PM DOOR PERSON 06/13/2018 7:43 PM DOOR PERSON Musa Reeder MD LAB - CHEMISTRY MADELIN MARTINEZ Performing Organization Address [facility] [place] [address], [facility] [phone] * TSH (06/13/2018 7:33 PM DOOR PERSON) TSH 1.307 0.350 - 4.940 uIU/mL 06/13/2018 8:21 PM DOOR PERSON [facility] Blood BLOOD SPECIMEN / Unknown 06/13/2018 7:33 PM DOOR PERSON 06/13/2018 7:43 PM DOOR PERSON Musa Reeder MD LAB - CHEMISTRY MADELIN MARTINEZ Performing Organization Address City/[facility]/[place] [address], [facility] [phone]
--- NOTE | 2024-05-19 22:00 | ECG_ITS ---
Test Date: 2024-05-19 22:02:28 Measurements Intervals D Lo Rate: 97 P: 71 KS: 132 QRS: 68 QRSD: 90 T: 45 QT: 332 QTc: 422 Interpretive Statements SINUS RHYTHM WITH SINUS ARRHYTHMIA POSSIBLE RIGHT VENTRICULAR CONDUCTION DELAY [RSR (QR) IN V1/V2] BASELINE ARTIFACT LIMITS INTERPRETATION No previous ECG available for comparison Electronically Signed On 05-20-2024 14:25:19 INSIDE SALES PERSON by Ebony Calvo M.D.
[2024-05-19 22:03] VITALS: BP 111/65; PULSE 98; RESP 14; TEMP 36.6; O2SAT 100
--- NOTE | 2024-05-19 22:54 | PC.NURSE ---
pt states they feel a lot better and would prefer to leave. educated pt to return with any concerning symptoms and to follow up with PCP. pt ambulates with steady gait and in no resp. didtress.
--- OUTSIDE RECORDS SUMMARY | 2024-05-19 23:01 | XMS_ITS | Referral Summary ---
Author Organization [facility] Address [address] [place] [address] Care Team Providers Care Office Rep Name Role Phone Kyle Kaur MD Primary Care Provider [phone] Aayush Steele MD Unavailable [phone] Allergies No known active allergies Medications omeprazole (PriLOSEC) 20 mg capsule TAKE 1 CAPSULE BY MOUTH TWICE A DAY BEFORE MEALS 3 Active rosuvastatin (CRESTOR) 10 mg tabletIndicatio ns:hyperlipidem ia Take 1 tablet (10 mg total) by mouth helmet hat sweatband puncher before breakfast 3 Active traZODone (DESYREL) 50 [...] 1 tablet (50 mg total) by mouth helmet hat sweatband puncher before breakfast Active lamoTRIgine (LaMICtal) 100 mg tabletIndicatio ns:Bipolar Disorder in Remission Take 1 tablet (100 mg total) by mouth helmet hat sweatband puncher before breakfast Active mv-mn/iron/foli c acid/herb 190 (VITAMIN D3 COMPLETE ORAL)Indication s:supplement Take 1 tablet by mouth helmet hat sweatband puncher before breakfast Active HYDROcodone-sherri taminophen (NORCO) 5-325 [...] on file Legal Sex Female 9:34 PM ART EDUCATION PROFESSOR Gender Identity Not on file Sexual Orientation Not on file Last Filed Vital Signs Vital Sign Reading Time Taken Comments Blood Pressure 144/95 04/23/2023 1:55 PM ART EDUCATION PROFESSOR Pulse 97 04/23/2023 1:55 PM ART EDUCATION PROFESSOR Temperature 36.4 ??C (97.5 ??F) 04/23/2023 1:27 PM CS T Respiratory Rate 12 04/23/2023 1:55 PM ART EDUCATION PROFESSOR Oxygen Saturation 96% 04/23/2023 1:55 PM ART EDUCATION PROFESSOR Inhaled Oxygen Concentration - - Weight 63.5 kg (140 lb) 04/01/2023 1:25 PM ART EDUCATION PROFESSOR Height 162.6 cm (5' 4 ) 04/01/2023 1:25 PM ART EDUCATION PROFESSOR Body Mass Index 24.03 04/01/2023 1:25 PM ART EDUCATION PROFESSOR Plan of Treatment Not on file Medical Devices Implanted Type Area Label Folder Device Identifier Shelf Expiration Date Model / Serial / Lot Implantech Alliedsil 3x2in Nonreinforced Permanent Implantable Thk.04in - [id number] Implanted:Qty: 1 on 04/23/2023 by Aayush Steele MD at [facility] Bilateral : Nose Implantech [id number] 07/25/2027 / / [id number] Insurance [facility] Care Teams Office Rep Relationship Specialty Start Date End Date Kyle Kaur MD [address] [facility] [address] [place] [address] PCP - General Internal Medicine 11/20/22 Aayush Steele MD [address] [facility] [address] [place] [address] Referring Physician Otolaryngology 04/23/23
--- OUTSIDE RECORDS SUMMARY | 2024-05-19 23:01 | XMS_ITS | Clinical Summary ---
Author Organization [facility] Address [address] [place] [address] Care Team Providers Care Supervisor Electron Tube Processing Name Role Phone Kyle Kaur MD Primary Care Provider [phone] Aayush Steele MD Unavailable [phone] Allergies No known active allergies Medications omeprazole (PriLOSEC) 20 mg capsule TAKE 1 CAPSULE BY MOUTH TWICE A DAY BEFORE MEALS 3 Active rosuvastatin (CRESTOR) 10 mg tabletIndicatio ns:hyperlipidem ia Take 1 tablet (10 mg total) by mouth electronic video games servicer before breakfast 3 Active traZODone (DESYREL) 50 [...] 1 tablet (50 mg total) by mouth electronic video games servicer before breakfast Active lamoTRIgine (LaMICtal) 100 mg tabletIndicatio ns:Bipolar Disorder in Remission Take 1 tablet (100 mg total) by mouth electronic video games servicer before breakfast Active mv-mn/iron/foli c acid/herb 190 (VITAMIN D3 COMPLETE ORAL)Indication s:supplement Take 1 tablet by mouth electronic video games servicer before breakfast Active HYDROcodone-sherri taminophen (NORCO) 5-325 [...] on file Legal Sex Female 9:34 PM SENIOR DATABASE PROGRAMMER Gender Identity Not on file Sexual Orientation Not on file Obstetrics History Last Filed Vital Signs Vital Sign Reading Time Taken Comments Blood Pressure 144/95 04/23/2023 1:55 PM SENIOR DATABASE PROGRAMMER Pulse 97 04/23/2023 1:55 PM SENIOR DATABASE PROGRAMMER Temperature 36.4 ??C (97.5 ??F) 04/23/2023 1:27 PM CS T Respiratory Rate 12 04/23/2023 1:55 PM SENIOR DATABASE PROGRAMMER Oxygen Saturation 96% 04/23/2023 1:55 PM SENIOR DATABASE PROGRAMMER Inhaled Oxygen Concentration - - Weight 63.5 kg (140 lb) 04/01/2023 1:25 PM SENIOR DATABASE PROGRAMMER Height 162.6 cm (5' 4 ) 04/01/2023 1:25 PM SENIOR DATABASE PROGRAMMER Body Mass Index 24.03 04/01/2023 1:25 PM SENIOR DATABASE PROGRAMMER Plan of Treatment Health Maintenance Due Date [...] 01/02/2017, 05/04/2014 Medical Devices Implanted Type Area Manager Federal Device Identifier Shelf Expiration Date Model / Serial / Lot Implantech Alliedsil 3x2in Nonreinforced Permanent Implantable Thk.04in -40 - [id number] Implanted:Qty: 1 on 04/23/2023 by Aayush Steele MD at [facility] Bilateral : Nose Implantech [id number] 07/25/2027-40 / / [id number] Insurance [facility] Care Teams Supervisor Electron Tube Processing Relationship Specialty Start Date End Date Kyle Kaur MD [address] [facility] [address] [place] [address] PCP - General Internal Medicine 11/20/22 Aayush Steele MD [address] [facility] [address] [place] [address] Referring Physician Otolaryngology 04/23/23
--- OUTSIDE RECORDS SUMMARY | 2024-05-19 23:01 | XMS_ITS | Patient Health Summary ---
Author Organization [facility] [employer] Address [address] [place] [address] Care Team Providers Care Erp Analyst Name Role Phone Unavailable Primary Care Provider Unavailabl e Note from [facility],non-owned Affiliates and Associated Physician Practices is amultiple site organization consisting of ambulatory clinics and hospital sitesin [place], [place], [place] and [place]. This disclosure is being madepursuant to the Care Everywhere program and may not contain all informatio navailable regarding this patient. Last updated 18.[facility] Allergies No known active allergies Medications * [...] Comments Blood Pressure 120/77 06/14/2018 12:06 AM INSTRUMENTATION AND CONTROL TECHNICIAN Pulse 84 06/14/2018 12:06 AM INSTRUMENTATION AND CONTROL TECHNICIAN Temperature 36.6 ??C (97.9 ??F) 06/13/2018 6:05 PM CS T Respiratory Rate 16 06/14/2018 12:06 AM INSTRUMENTATION AND CONTROL TECHNICIAN Oxygen Saturation 100% 06/14/2018 12:06 AM INSTRUMENTATION AND CONTROL TECHNICIAN Inhaled Oxygen Concentration - - Weight 59 kg (130 lb) 06/13/2018 6:05 PM INSTRUMENTATION AND CONTROL TECHNICIAN Height 162.6 cm (5' 4 ) 06/13/2018 6:05 PM INSTRUMENTATION AND CONTROL TECHNICIAN Body Mass Index 22.31 06/13/2018 6:05 PM INSTRUMENTATION AND CONTROL TECHNICIAN Procedures * HCG URINE QUALITATIVE(Performed 06/13/2018) * URINE DRUG SCREEN IMMUNOASSAY(Performed 06/13/2018) * EKG 12-LEAD(Performed 06/13/2018) Performed for Suicidal ideation * HCG BETA BLOOD QUANTITATIVE(Performed 06/13/2018) * TSH(Performed 06/13/2018) * ALCOHOL ETHYL BLOOD(Performed 06/13/2018) * COMPREHENSIVE METABOLIC PANEL(Performed 06/13/2018) * CBC W AUTO DIFFERENTIAL(Performed 06/13/2018) * HIV-1 HIV-2 ANTIGEN/ANTIBODY(Performed 06/13/2018) Results * HCG URINE QUALITATIVE (06/13/2018 9:30 PM INSTRUMENTATION AND CONTROL TECHNICIAN) [facility] Test Urine Negative Negative 06/13/2018 9:40 PM INSTRUMENTATION AND CONTROL TECHNICIAN [facility] Urine URINE / Unknown Collection / Unknown 06/13/2018 9:30 PM INSTRUMENTATION AND CONTROL TECHNICIAN 06/13/2018 9:35 PM INSTRUMENTATION AND CONTROL TECHNICIAN Musa Reeder MD LAB - URINALYSIS ORD ERABLES [address] [phone] * DRUG SCREEN TOX URINE PANEL (06/13/2018 9:30 PM INSTRUMENTATION AND CONTROL TECHNICIAN) [facility] Amphetamines Screen Urine Negative Negative: < 1000 ng/mL 06/13/2018 9:58 PM INSTRUMENTATION AND CONTROL TECHNICIAN [facility] Barbiturates Screen Urine Negative Negative: < 200 ng/mL 06/13/2018 9:58 PM INSTRUMENTATION AND CONTROL TECHNICIAN [facility] Benzodiazepine Screen Urine Negative Negative: < 200 ng/mL 06/13/2018 9:58 PM [facility] Opiates Urine Negative Negative: < 300 ng/mL 06/13/2018 9:58 PM [facility] Cocaine Metabolites Urine Negative Negative: < 300 ng/mL 06/13/2018 9:58 PM [facility] Phencyclidine Screen Urine Negative Negative: < 25 ng/ml 06/13/2018 9:58 PM [facility] Cannabinoids Screen Urine Negative Negative: <50 ng/mL 06/13/2018 9:58 PM [facility] Methadone Screen Urine Negative Negative: < 300 ng/mL 06/13/2018 9:58 PM [facility] Urine URINE / Unknown Collection / Unknown 06/13/2018 9:30 PM [facility] 06/13/2018 9:35 PM [facility] - 06/13/2018 9:58 PM [facility] The Urine Toxicology Screening Panel does not screen for Propoxyphene, Meprobamate, Carisoprodol, Trazodone, [id number] medications and/or volatiles (Acetone, Isopropanol, Methanol or Ethylene Glycol). Ethanol, Salicylate, Acetaminophen, Tricyclic Antidepressants and several therapeutic drugs may be individually assayed in serum or plasma specimen. Toxicology testing by the [facility] is an aid to medical diagnosis and treatment of patients. No documented chain of custody was maintained. Results are intended to be used for clinical purposes only. ? Musa Reeder MD LAB - URINE CHEMISTR Y ORDERABLES [facility] [address] [phone] * EKG 12-LEAD (06/13/2018 7:46 PM INSTRUMENTATION AND CONTROL TECHNICIAN) [facility] Ventricular Rate 83 BPM [facility] M[facility] Atrial Rate 83 BPM [facility] P-R Interval 124 ms [facility] QRS Duration ms 78 ms [facility] Q-T Interval ms 334 ms [facility] QTC Calculation (Bezet) 392 ms [facility] MUSE Calculated P [place] 67 degrees SL MUSE Calculated R [place] 68 degrees [facility] MUSE Calculated T [place] 29 degrees [facility] MUSE Interpretation EKG NORMAL SINUS RHYTHM WITH SINUS ARRHYTHMIA NORMAL ECG NO PREVIOUS ECGS AVAILABLE Confirmed by [employer] ([id number]), field map editor Jose Elias House ([id number]) on 07/25/2018 5:06:25 PM [facility] MUSE 06/13/2018 7:46 PM INSTRUMENTATION AND CONTROL TECHNICIAN 07/25/2018 5:06 PM CDT Musa Reeder MD ECG ORDERABLES Performing Organization Address [facility] Co de Phone Number [facility] * HIV-1 HIV-2 ANTIGEN/ANTIBODY (06/13/2018 7:33 PM INSTRUMENTATION AND CONTROL TECHNICIAN) [facility] HIV Antigen/Antibod y 1 & 2 Non-reacti ve Non-react tree 06/13/2018 8:21 PM INSTRUMENTATION AND CONTROL TECHNICIAN [facility] Comment: Neither HIV-1 p24 Antigen nor HIV-1/HIV-2 Antibodies are detected. ? Blood BLOOD SPECIMEN / Unknown 06/13/2018 7:33 PM INSTRUMENTATION AND CONTROL TECHNICIAN 06/13/2018 7:43 PM INSTRUMENTATION AND CONTROL TECHNICIAN Quentin Butcher MD LAB - HEMATOLOGY O RDERABLES Performing Organization Address City/[facility] [address]/ZIP Co de Phone Number [facility] [address] [place] [address] * CBC W AUTO DIFFERENTIAL (06/13/2018 7:33 PM INSTRUMENTATION AND CONTROL TECHNICIAN) [facility] WBC 7.1 3.5 - 10.5 10? 3 /uL 06/13/2018 7:46 PM [facility] RBC 4.51 3.90 - 5.00 10? 6 /uL 06/13/2018 7:46 PM [facility] Hemoglobin 14.1 12.0 - 15.5 g/dL 06/13/2018 7:46 PM [facility] Hematocrit 40.9 35.0 - 45.0 % 06/13/2018 7:46 PM [facility] MCV 90.7 81.0 - 97.0 fL 06/13/2018 7:46 PM [facility] MCH 31.3 28.0 - 34.0 pg 06/13/2018 7:46 PM [facility] MCHC 34.5 32.0 - 36.0 g/dL 06/13/2018 7:46 PM [facility] Platelet Count 346 150 - 400 10? 3 /uL 06/13/2018 7:46 PM [facility] RDW-SD 39.5 36.0 - 50.0 fL 06/13/2018 7:46 PM [facility] RDW-CV 11.9 11.2 - 14.8 % 06/13/2018 7:46 PM [facility] MPV 9.7 9.3 - 12.8 fL 06/13/2018 7:46 PM [facility] nRBC Absolute 0.00 0 10? 3 /uL 06/13/2018 7:46 PM [facility] nRBC Auto 0.0 0 /100 WBC 06/13/2018 7:46 PM [facility] Neutrophils % 63.3 35.0 - 70.0 % 06/13/2018 7:46 PM [facility] Lymphocytes % 28.8 19.7 - 55.1 % 06/13/2018 7:46 PM [facility] Monocytes % 7.0 3.0 - 15.0 % 06/13/2018 7:46 PM [facility] Eosinophils % 0.1 0.0 - 6.0 % 06/13/2018 7:46 PM [facility] Basophil % 0.7 0.0 - 1.5 % 06/13/2018 7:46 PM [facility] Neutrophils Absolute 4.5 1.6 - 7.0 10? 3 /uL 06/13/2018 7:46 PM [facility] Lymphocyte Absolute 2.0 0.8 - 2.9 10? 3 /uL 06/13/2018 7:46 PM [facility] Monocytes Absolute 0.49 0.14 - 0.66 10? 3 /uL 06/13/2018 7:46 PM [facility] Eosinophils Absolute 0.01 0.00 - 0.45 10? 3 /uL 06/13/2018 7:46 PM [facility] Basophils Absolute 0.05 0.00 - 0.06 10? 3 /uL 06/13/2018 7:46 PM [facility] Immature Granulocytes % 0.1 0.0 - 1.0 % 06/13/2018 7:46 PM [facility] Blood BLOOD SPECIMEN / Unknown 06/13/2018 7:33 PM INSTRUMENTATION AND CONTROL TECHNICIAN 06/13/2018 7:43 PM [facility] Musa Reeder MD LAB - HEMATOLOGY ORD ERABLES Performing Organization Address City/State/[facility] Co de Phone Number [address] [phone] * (ABNORMAL) COMPREHENSIVE METABOLIC PANEL (06/13/2018 7:33 PM INSTRUMENTATION AND CONTROL TECHNICIAN) BUN 21 7 - 26 mg/dL 06/13/2018 8:01 PM [facility] Creatinine 0.9 0.6 - 1.2 mg/dL 06/13/2018 8:01 PM [facility] Sodium 138 136 - 145 mmol/L 06/13/2018 8:01 PM [facility] Potassium 4.3 3.5 - 4.5 mmol/L 06/13/2018 8:01 PM [facility] Chloride 104 98 - 107 mmol/L 06/13/2018 8:01 PM [facility] CO2 22 22 - 29 mmol/L 06/13/2018 8:01 PM [facility] Glucose 85 70 - 115 mg/dL 06/13/2018 8:01 PM [facility] Calcium 10.3(H) 8.4 - 10.2 mg/dL 06/13/2018 8:01 PM [facility] Protein Total 8.5(H) 6.0 - 8.3 g/dL 06/13/2018 8:01 PM [facility] Albumin 4.3 3.4 - 5.0 g/dL 06/13/2018 8:01 PM [facility] Bilirubin Total 0.5 0.2 - 1.2 mg/dL 06/13/2018 8:01 PM [facility] Alkaline Phosphatase 77 40 - 150 Units/L 06/13/2018 8:01 PM [facility] ALT 32 0 - 55 Units/L 06/13/2018 8:01 PM [facility] AST 30 5 - 34 Units/L 06/13/2018 8:01 PM [facility] Anion Gap 16 8 - 18 06/13/2018 8:01 PM [facility] BUN/Creatinine Ratio 23 7 - 23 06/13/2018 8:01 PM [facility] Osmolality Calculated 288 270 - 300 mOsm/kg 06/13/2018 8:01 PM [facility] Albumin/Globulin Ratio 1.0(L) 1.1 - 2.3 06/13/2018 8:01 PM [facility] eGFR >60 >60 mL/min/1.7 3 m2 06/13/2018 8:01 PM [facility] Blood BLOOD SPECIMEN / Unknown 06/13/2018 7:33 PM INSTRUMENTATION AND CONTROL TECHNICIAN 06/13/2018 7:43 PM [facility] Musa Reeder MD LAB - CHEMISTRY MADELIN MARTINEZ [facility] Organization Address City/State/ZIP Co de Phone Number [address] [phone] * HCG BETA BLOOD QUANTITATIVE (06/13/2018 7:33 PM [facility]) Beta-hCG Total Quantitative <2 <5 mIU/mL 06/13/2018 9:58 PM [facility] Comment: HCG Numeric Result Interpretation: ? Non- Females: ? < 5 mIU/mL ? Post-Menopausal Females: ??< 7 mIU/mL ? Blood BLOOD SPECIMEN / Unknown 06/13/2018 7:33 PM INSTRUMENTATION AND CONTROL TECHNICIAN 06/13/2018 7:43 PM INSTRUMENTATION AND CONTROL TECHNICIAN Musa Reeder MD LAB - CHEMISTRY MADELIN MARTINEZ Performing Organization Address City/[facility] [address] [facility]/[place] [address], [facility] [phone] * ALCOHOL ETHYL BLOOD (06/13/2018 7:33 PM INSTRUMENTATION AND CONTROL TECHNICIAN) Interpretation Ethanol None Detected None Detected mg/dL 06/13/2018 8:01 PM INSTRUMENTATION AND CONTROL TECHNICIAN [facility] Comment: Ethanol levels less than 10 mg/dL are resulted as None detected . Blood BLOOD SPECIMEN / Unknown 06/13/2018 7:33 PM INSTRUMENTATION AND CONTROL TECHNICIAN 06/13/2018 7:43 PM INSTRUMENTATION AND CONTROL TECHNICIAN Musa Reeder MD LAB - CHEMISTRY MADELIN MARTINEZ Performing Organization Address [facility] [address] [facility] [place] [address], [facility] [phone] * TSH (06/13/2018 7:33 PM INSTRUMENTATION AND CONTROL TECHNICIAN) TSH 1.307 0.350 - 4.940 uIU/mL 06/13/2018 8:21 PM INSTRUMENTATION AND CONTROL TECHNICIAN [facility] Blood BLOOD SPECIMEN / Unknown 06/13/2018 7:33 PM INSTRUMENTATION AND CONTROL TECHNICIAN 06/13/2018 7:43 PM INSTRUMENTATION AND CONTROL TECHNICIAN Musa Reeder MD LAB - CHEMISTRY MADELIN MARTINEZ Performing Organization Address City/[facility] [address]/[place] [address], [facility] [phone]
--- OUTSIDE RECORDS SUMMARY | 2024-05-19 23:01 | XMS_ITS | Referral Summary ---
Author Organization [facility] [employer] Address [address] [place] [address] Care Team Providers Care Joint Cutter Machine Name Role Phone Unavailable Primary Care Provider Unavailabl e Source Comments [facility],non-owned Affiliates and Associated Physician Practices is amultiple site organization consisting of ambulatory clinics and hospital sitesin [place], [place], [place] and [place]. This disclosure is being madepursuant to the Care Everywhere program and may not contain all information available regarding this patient. Last updated 18.[facility] [employer] Allergies No known active allergies Medications * [...] Comments Blood Pressure 120/77 06/14/2018 12:06 AM TANK TRUCK ENGINE MECHANIC Pulse 84 06/14/2018 12:06 AM TANK TRUCK ENGINE MECHANIC Temperature 36.6 ??C (97.9 ??F) 06/13/2018 6:05 PM CS T Respiratory Rate 16 06/14/2018 12:06 AM TANK TRUCK ENGINE MECHANIC Oxygen Saturation 100% 06/14/2018 12:06 AM TANK TRUCK ENGINE MECHANIC Inhaled Oxygen Concentration - - Weight 59 kg (130 lb) 06/13/2018 6:05 PM TANK TRUCK ENGINE MECHANIC Height 162.6 cm (5' 4 ) 06/13/2018 6:05 PM TANK TRUCK ENGINE MECHANIC Body Mass Index 22.31 06/13/2018 6:05 PM TANK TRUCK ENGINE MECHANIC Plan of Treatment Not on file Procedures Procedure Name Priority Date/Time Associated Diagnosis Comments HIV-1 HIV-2 ANTIGEN/ANTIBODY STAT 06/13/2018 7:33 PM TANK TRUCK ENGINE MECHANIC from Last 3 Months or Most Recently Relevant to Health Maintenance Results * HIV-1 HIV-2 ANTIGEN/ANTIBODY (06/13/2018 7:33 PM TANK TRUCK ENGINE MECHANIC) HIV Antigen/Antibod y 1 & 2 Non-reacti ve Non-react tree 06/13/2018 8:21 PM TANK TRUCK ENGINE MECHANIC [facility] Comment: Neither HIV-1 p24 Antigen nor HIV-1/HIV-2 Antibodies are detected. ? Blood BLOOD SPECIMEN / Unknown 06/13/2018 7:33 PM TANK TRUCK ENGINE MECHANIC 06/13/2018 7:43 PM TANK TRUCK ENGINE MECHANIC Quentin Butcher MD LAB - HEMATOLOGY O RDERABLES Performing Organization Address City/State/[facility] Co de Phone Number [facility] [address] [phone] from Last 3 Months or Most Recently Relevant to Health Maintenance LAURIE NEWBY EA Personal/Famil y 2000 [address] [place] [address]
--- OUTSIDE RECORDS SUMMARY | 2024-05-19 23:01 | XMS_ITS | Clinical Summary ---
Author Organization [facility] [employer] Address [address] [place] [address] Care Team Providers Care Receiver Bulk System Name Role Phone Unavailable Primary Care Provider Unavailabl e Source Comments [facility] [employer],non-owned Affiliates and Associated Physician Practices is amultiple site organization consisting of ambulatory clinics and hospital sitesin [place], [place], [place] and [place]. This disclosure is being madepursuant to the Care Everywhere program and may not contain all information available regarding this patient. Last updated 18.[facility] [employer] Allergies No known active allergies Medications * [...] Comments Blood Pressure 120/77 06/14/2018 12:06 AM TACTICAL DEBRIEFER OFFICER Pulse 84 06/14/2018 12:06 AM TACTICAL DEBRIEFER OFFICER Temperature 36.6 ??C (97.9 ??F) 06/13/2018 6:05 PM CS T Respiratory Rate 16 06/14/2018 12:06 AM TACTICAL DEBRIEFER OFFICER Oxygen Saturation 100% 06/14/2018 12:06 AM TACTICAL DEBRIEFER OFFICER Inhaled Oxygen Concentration - - Weight 59 kg (130 lb) 06/13/2018 6:05 PM TACTICAL DEBRIEFER OFFICER Height 162.6 cm (5' 4 ) 06/13/2018 6:05 PM TACTICAL DEBRIEFER OFFICER Body Mass Index 22.31 06/13/2018 6:05 PM TACTICAL DEBRIEFER OFFICER Plan of Treatment Health Maintenance Due Date [...] HIV-1 HIV-2 ANTIGEN/ANTIBODY STAT 06/13/2018 7:33 PM TACTICAL DEBRIEFER OFFICER from Last 3 Months or Most Recently Relevant to Health Maintenance Results * HIV-1 HIV-2 ANTIGEN/ANTIBODY (06/13/2018 7:33 PM TACTICAL DEBRIEFER OFFICER) HIV Antigen/Antibod y 1 & 2 Non-reacti ve Non-react tree 06/13/2018 8:21 PM TACTICAL DEBRIEFER OFFICER [facility] Comment: Neither HIV-1 p24 Antigen nor HIV-1/HIV-2 Antibodies are detected. ? Blood BLOOD SPECIMEN / Unknown 06/13/2018 7:33 PM TACTICAL DEBRIEFER OFFICER 06/13/2018 7:43 PM TACTICAL DEBRIEFER OFFICER Quentin Butcher MD LAB - HEMATOLOGY O RDERAORLIN [facility] [address] [place] [address] from Last 3 Months or Most Recently Relevant to Health Maintenance LAURIE NEWBY EA A Personal/Famil y 2000 [address] [place] [address]
== END 2024-05-19 22:54 | disposition left against medical advice (07) ==
PROVIDERS: Emergency Provider Physician Assistant
DX: R06.02 Shortness of breath (principal)
CPT/HCPCS: 93005; 99199